=== PATIENT | female | born 1990 | race Two or more races ===

== ENCOUNTER 2023-03-07 12:08 | Emergency (ER) | payer OTHER, SELFPAY ==
[2023-03-07 12:13] VITALS: BP 136/97; PULSE 95; O2SAT 97
[2023-03-07 13:09] VITALS: BP 149/106; PULSE 95; RESP 18; TEMP 36.7; O2SAT 100; BMI 29.0
[2023-03-07 13:17] LABS: Appearance Urine Clear; Color Urine Yellow; Glucose Urine UA Negative (Negative); Leukocyte Esterase Urine Negative (Negative); Nitrite Urine Negative (Negative); Specific Gravity - Urine 1.025 (1.005-1.025); Urine Blood Negative (Negative); Urine Ketones Negative (Negative); Urine Protein Negative (Neg-Trace)
[2023-03-07 13:24] LABS: Amphetamine Screen Urine Not Detected (Not Detect); Barbiturates, Urine Not Detected (Not Detect); Benzodiazepines Screen Urine Not Detected (Not Detect); Cannabinoid Screen Urine POSITIVE (Not Detect); Cocaine Screen Urine Not Detected (Not Detect); Fentanyl, urine Not Detected (Not Detect); Opiate Screen Urine Not Detected (Not Detect); Phencyclidine Screen Urine Not Detected (Not Detect)
--- NOTE | 2023-03-07 13:36 | ED_ITS ---
HPI - General Adult General Chief complaint: Psychiatric Symptoms Stated complaint: panic attack/ SI comment made to EMS Time Seen by Provider: 03/07/23 12:48 Source: patient and EMS Mode of arrival: EMS Limitations: no limitations History of Present Illness HPI narrative: 32-year-old female history of borderline personalidy do, anxiety and depression presents with anxiety, depression, increasing life stressors over the past few days. Patient reports she felt overwhelmed And made SI comments of jumping off a bridge however she states she did not mean it. Denies complaints at this time. Denies SI and HI. Reports just anxious intermittently. No hallucinations. No drugs, alcohol or tobacco. No medical complaints Related Data Home Medications Medication Instructions Recorded Confirmed Dai 1 tab PO DAILY 03/07/23 03/07/23 Allergies Allergy/AdvReac Type Severity Reaction Status Date / Time seafood Allergy Unknown Verified 03/07/23 13:12 Review of Systems 2 Review of Systems: Constitutional : No Weight loss, No Fever, No Chills, No Fatigue, No Malaise ENT/Mouth : No sore throat, No Rhinorrhea Eyes: No Eye Pain, No Swelling, No Redness Cardiovascular : No Chest Pain, No SOB, No Dyspnea on Exertion, No Orthopnea, No Edema, No Palpitations Respiratory : No Cough, No Sputum, No Wheezing Gastrointestinal : No Nausea, No Vomiting, No Diarrhea, No Constipation, No abdominal Pain, No Hematochezia, No Melena Genitourinary : No Dysuria, No Urinary Frequency, No Hematuria, Musculoskeletal : No joint pain, No Myalgias, No Joint Swelling Skin : No Skin Lesions, No rash Neuro : No Weakness, No Numbness, No Dizziness, No Headache Psych : + Anxiety/Panic, + Depression, No si/ hi All other systems reviewed and are negative Yes all other systems are reviewed and are negative [facility] Social History Social History Smoked in Last 30 Days: No Substance Use Type: Marijuana Advance Directives: No Advance Directives Information Provided: Yes Patient : No Physical Exam ED Vital Signs: Vital Signs - 24 hr 03/07/23 13:09 03/07/23 14:53 Temperature 98.1 F 97.9 F Pulse Rate 95 97 Respiratory Rate 18 16 Blood Pressure 149/106 H 155/94 H Pulse Oximetry 100 99 Oxygen Delivery Method Room Air Room Air BMI result Body Mass Index 29.0 vital signs stable Appearance: Alert.? Oriented X3.? No acute distress.? Head: Normocephalic, atraumatic, no step-offs or deformities Eyes: Pupils equal, round and reactive to light.? CVS: Normal heart rate and rhythm.? Pulses normal.? Respiratory: No respiratory distress.? Breath sounds normal.? Abdomen: Soft and nontender.? Skin: Skin warm and dry.? Normal skin color.? Normal skin turgor.? Extremities: No lower extremity edema.? No calf ttp. 5/5 strength to bilateral upper and lower extremities Neuro: Oriented X 3.? No motor deficit.? No sensory deficit. CN 2-12 intact Course Reevaluation(s) Reevaluation #1: CBC with slight leukocytosis, no shift, no medical complaints, this could be patient's baseline. I do not suspect infection. Chemistry unremarkable. Negative HCG. UA clean. Tox + THC. Negative salicylates, acetaminophen, ethanol. Patient pending care team. At this time patient to be placed into observation to allow more time to be evaluated by care team. At time observation was started common cooperative no acute distress will continue to monitor Time: 16:26 Medical Decision Making Medical Decision Making [facility] Narrative: 32-year-old female presents with anxiety and depression made suicidal comments at work, was overwhelmed now regrets it. No medical complaint physical exam benign likely anxiety versus depression versus bipolar versus schizophrenia. Unlikely metabolic derangements. Plan medical clearance evaluation by behavioral health team Differential Diagnosis Differential Diagnoses: The differential diagnosis associated with the presentation includes likely anxiety versus depression versus bipolar versus schizophrenia. Unlikely metabolic derangements. Lab Data [facility] Lab Attestation statement: I reviewed the patient's lab results. 03/07/23 13:38 03/07/23 13:38 Labs: Lab Results 03/07/23 03/07/23 Range/Units 12:57 13:38 WBC 12.8 H (4.8-10.8) X10*3/uL RBC 4.70 (4.20-5.50) X10*6/uL Hgb 14.4 (12.0-16.0) g/dl Hct 44.1 (37.0-47.0) % MCV 93.8 (80.0-98.0) fL MCH 30.6 (27.0-33.0) pg MCHC 32.7 (31.0-35.0) g/dl RDW 12.9 (11.0-16.0) % Plt Count 356 (160-400) X10*3/uL MPV 9.7 (9.4-12.3) fL Immature Gran % (Auto) 0.5 H (0.0-0.4) % Neut % (Auto) 75.0 H (45-73) % Lymph % (Auto) 15.9 L (20-40) % [place] % (Auto) 5.1 (2-11) % Eos % (Auto) 3.0 (0-4) % Baso % (Auto) 0.5 (0-2) % Lymph # (Auto) 2.0 (1.2-4.9) X10*3/uL [place] # (Auto) 0.7 (0.1-1.2) X10*3/uL Eos # (Auto) 0.4 (0.0-0.4) X10*3/uL Baso # (Auto) 0.1 (0.0-0.2) X10*3/uL Abs Immat Gran (auto) 0.06 H (0.00-0.03) X10*3/uL Absolute Neuts (auto) 9.6 H (2.0-8.3) x10*3/uL Absolute Nucleated RBC 0.000 (0.0-0.012) X10*3/uL Nucleated RBC % (auto) 0.0 (0.0-0.2) /100WBC Sodium 141 (135-145) mmol/L Potassium 3.9 (3.3-5.1) mmol/L Chloride 106 (96-108) mmol/L Carbon Dioxide 26 (22-29) mmol/L Anion Gap 13 (12-20) BUN 9 (9-16) mg/dL Creatinine 0.84 (0.5-1.4) mg/dL Estim Creat Clear Calc 105.5 Estimated GFR > 60 Random Glucose 90 (60-115) mg/dL Calcium 9.9 (8.4-10.2) mg/dL Magnesium 2.0 (1.6-2.6) mg/dL Total Bilirubin 0.6 (0.0-1.0) mg/dL AST 19 (5-31) U/L ALT 19 (0-31) U/L Alkaline Phosphatase 77 (39-117) U/L Total Protein 8.3 H (6.5-8.0) g/dL Albumin 4.8 (3.5-5.0) g/dL Beta HCG, Quant < 2 mIU/mL Urine Color Yellow Urine Appearance Clear Urine pH 5.0 (5.0-9.0) Ur Specific [place] 1.025 (1.005-1.025) Urine Protein Negative (Neg-Trace) mg/dL Urine Glucose (UA) Negative (Negative) mg/dL Urine Ketones Negative (Negative) mg/dL Urine Blood Negative (Negative) Urine Nitrite Negative (Negative) Ur Leukocyte Esterase Negative (Negative) Salicylates < 5.0 L (15-30) mg/dL Urine Opiates Screen Not Detected (Not Detect) Urine Fentanyl Screen Not Detected (Not Detect) Acetaminophen < 3 (<30) mcg/mL Ur Barbiturates Screen Not Detected (Not Detect) Ur Phencyclidine Scrn Not Detected (Not Detect) Ur Amphetamines Screen Not Detected (Not Detect) U Benzodiazepines Scrn Not Detected (Not Detect) Urine Cocaine Screen Not Detected (Not Detect) U Marijuana (THC) Screen POSITIVE H (Not Detect) Ethyl Alcohol < 10 mg/dL COVID-19 (FRANTZ) Negative (Negative) COVID-19 Clin Com See Note Critical Care Time Critical Care Time Critical Care Time: No Discharge Plan Discharge Clinical Impression: Acute anxiety, Depression Patient Disposition: Still a Patient Prescriptions: No Action Dai 1 tab PO DAILY Interventions: [place]-Suicide Risk Severity Scale Last Done: 03/07/23 13:13
[2023-03-07 13:43] LABS: MANUAL DIFF FLAG NO
[2023-03-07 13:46] LABS: Basophils Absolute Auto 0.1 X10*3/uL (0.0-0.2); Basophils Percent Auto 0.5 % (0-2); Eosinophils Absolute Auto 0.4 X10*3/uL (0.0-0.4); Hematocrit 44.1 % (37.0-47.0); Hemoglobin 14.4 g/dl (12.0-16.0); Imm Gran Abs Auto 0.06 X10*3/uL (0.00-0.03); Imm Gran Pct Auto 0.5 % (0.0-0.4); Lymphocytes Percent Auto 15.9 % (20-40); Mean Corpuscular HGB Conc 32.7 g/dl (31.0-35.0); Mean Corpuscular Hemoglobin 30.6 pg (27.0-33.0); Mean Corpuscular Volume 93.8 fL (80.0-98.0); Mean Platelet Volume 9.7 fL (9.4-12.3); Monocytes Absolute Auto 0.7 X10*3/uL (0.1-1.2); Monocytes Percent Auto 5.1 % (2-11); Neutrophils Absolute Auto 9.6 x10*3/uL (2.0-8.3); Platelet Count 356 X10*3/uL (160-400); Red Cell Distribution Width 12.9 % (11.0-16.0); White Blood Count 12.8 X10*3/uL (4.8-10.8)
[2023-03-07 13:59] LABS: Acetaminophen LAB < 3 mcg/mL (<30); Salicylate < 5.0 mg/dL (15-30)
[2023-03-07 14:03] LABS: COVID-19 Test Negative (Negative); IDNOW Serial# 9DB6401D
[2023-03-07 14:13] LABS: Alanine Aminotransferase 19 U/L (0-31); Albumin Level 4.8 g/dL (3.5-5.0); Alkaline Phosphatase 77 U/L (39-117); Anion Gap 13 (12-20); Aspartate Amino Transferase 19 U/L (5-31); Bilirubin Total 0.6 mg/dL (0.0-1.0); Blood Urea Nitrogen 9 mg/dL (9-16); Calcium 9.9 mg/dL (8.4-10.2); Carbon Dioxide 26 mmol/L (22-29); Chloride 106 mmol/L (96-108); Creatinine Clr Calc Pharmacy 105.5; Estimated Glomerular Filt Rate > 60; Ethanol < 10 mg/dL; Glucose Random 90 mg/dL (60-115); HCG Quantitative < 2 mIU/mL; Potassium 3.9 mmol/L (3.3-5.1); Sodium 141 mmol/L (135-145); Total Protein 8.3 g/dL (6.5-8.0)
--- NOTE | 2023-03-07 14:17 | PC.NURSE ---
Pt is alert/oriented. Presents today stating panic attack with increased anxiety/depression d/t life stressors including living with boyfriends parents in a small apartment. 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 Difficulty with jobs d/t PTSD and BPD per pt. Pt is tearful at times but remains in behavioral control. States always having SI thoughts but worsening at this time but reports no true intent stating I really wouldn't do it, I just want to be happy with my boyfriend Pt also discloses a significant trauma history. Sees a therapist and states therapist is working on referral for psychiatrist as pt as been without meds x 9-10 years. Denies A/V hallucinations.
[2023-03-07 14:53] VITALS: BP 155/94; PULSE 97; RESP 16; TEMP 36.6; O2SAT 99
--- NOTE | 2023-03-07 15:05 | PC.NURSE ---
Speaking with CARE team at this time
== END 2023-03-07 17:49 | disposition home or self-care (01) ==
PROVIDERS: Physician Assistant; Emergency Provider Emergency Medicine
DX: F33.1 Major depressive disorder, recurrent, moderate (principal); R45.851 Suicidal ideations; F41.9 Anxiety disorder, unspecified; F43.9 Reaction to severe stress, unspecified; Z11.52 Encounter for screening for COVID-19; Z20.822 Contact with and (suspected) exposure to COVID-19; Z79.899 Other long term (current) drug therapy
CPT/HCPCS: 80053; 80143; 80179; 80307; 81003; 83735; 84702; 85025; 87635; 99285; S9485

== ENCOUNTER 2023-03-13 16:10 | Emergency (ER) | payer OTHER, SELFPAY ==
[2023-03-13 16:32] VITALS: BP 142/94; PULSE 97; RESP 16; TEMP 37.1; O2SAT 96; BMI 29.0
--- NOTE | 2023-03-13 16:40 | ED_ITS ---
HPI - Dizziness General Chief Complaint: Dizziness Stated Complaint: WEAK,DIZZY,VOMITING Time Seen by Provider: 03/13/23 16:26 Source: patient Mode of arrival: EMS Limitations: no limitations History of Present Illness HPI Narrative: Patient with history of anxiety and depressions seen here on 03/07 for anxiety and depression comes in for nausea vomiting dizziness started early today vomited about 5 times no diarrhea does have abdominal pain patient in epigastric area no fever no chills no urinary symptoms no upper respiratory symptoms Related Data Home Medications Medication Instructions Recorded Confirmed Dai 1 tab PO DAILY 03/07/23 03/07/23 Allergies Allergy/AdvReac Type Severity Reaction Status Date / Time seafood Allergy Unknown Verified 03/13/23 16:32 Review of Systems Review of Systems: Yes all other systems are reviewed and are negative PENDING SALE TO [facility] Social History Social History Substance Use Type: Marijuana Advance Directives: No Advance Directives Information Provided: No Physical Exam Vital Signs: Vital Signs: Last Vital Signs Temp 98.8 F 03/13/23 16:32 Pulse 103 H 03/13/23 17:51 Resp 16 03/13/23 17:51 BP 140/89 H 03/13/23 17:51 Pulse Ox 96 03/13/23 17:51 O2 Del Method Room Air 03/13/23 17:51 BMI result Body Mass Index 29.0 Appearance: Alert. Oriented X3. No acute distress. Eyes: PERRLA, No Nystagmus ENT: Pharynx normal. Oral Mucosa moist Neck: Normal inspection. Neck supple. CVS: Normal heart rate and rhythm. Pulses normal. Respiratory: No respiratory distress. Equal air entry bilateral, Abdomen: Soft mild epigastric discomfort, Bowel sounds are present, no mass palpable, no CVA tenderness Skin: Skin warm and dry. Normal skin color. Normal skin turgor. Extremities: No lower extremity edema. No calf tenderness Neuro: Oriented X 3. No motor deficit. No sensory deficit.No cerebellar signs Medications Administered Discontinued Medications Generic Name Dose Route Start Last Admin Trade Name Freq PRN Reason Stop Dose Admin Ondansetron HCl 4 mg 03/13/23 16:40 03/13/23 17:50 Ondansetron Odt 4 Mg Tab.Rapdis TRANSLINGU 03/13/23 16:41 4 mg ONCE ONE Administration Medical Decision Making Medical Decision Making [facility] Narrative: Patient with mild nausea vomiting just had labs a week ago which were normal after Zofran patient able to drink vitals are stable discharge patient benign abdomen Discharge Plan Discharge Clinical Impression: Nausea & vomiting Patient Disposition: Home, Self-Care Instructions: Acute Nausea and Vomiting (ED) Additional Instructions: Drink plenty of fluids Follow with PCP if any concerns or not better Prescriptions: No Action Dai 1 tab PO DAILY
[2023-03-13] MEDS: Ondansetron ODT 4 MG TAB.RAPDIS TRANSLINGU (17:50)
[2023-03-13 17:51] VITALS: BP 140/89; PULSE 103; RESP 16; O2SAT 96
--- NOTE | 2023-03-13 18:13 | PC.NURSE ---
PT STATES SIG IMPROVEMENT WITH [facility], NAUSEA/DIZZINESS RESOLVED.
== END 2023-03-13 18:42 | disposition home or self-care (01) ==
PROVIDERS: Emergency Provider Internal Medicine
DX: R11.2 Nausea with vomiting, unspecified (principal); F12.90 Cannabis use, unspecified, uncomplicated
CPT/HCPCS: 99283; 99284